=== PATIENT | female | born 1965 ===

== ENCOUNTER 2018-11-19 10:42 | Emergency (ER) | payer MEDICAID ==
[2018-11-19 10:48] VITALS: RESP 18; O2SAT 97
[2018-11-19 12:50] VITALS: BP 114/71; PULSE 55; TEMP 98.5
--- NOTE | 2018-11-19 13:04 | C.PDOC ---
History Of Present Illness 53 year old female presents to the ED for evaluation of cough which began one week ago. She also reports associated fever, sore throat, and diarrhea. Patient reports a history of asthma. She has been using her inhaler without relief and is requesting albuterol for her pump. She denies abdominal pain, shortness of breath, and vomiting. Time Seen by Provider: 11/19/18 10:54 Chief Complaint (Nursing): Flu-like Symptoms History Per: Patient History/Exam Limitations: no limitations Onset/Duration Of Symptoms: Other (one week ) Current Symptoms Are (Timing): Still Present Additional History Per: Patient Past Medical History Reviewed: Historical Data, Nursing Documentation, Vital Signs Vital Signs: Last Vital Signs Temp 98.5 F 11/19/18 12:50 Pulse 55 L 11/19/18 12:50 Resp 18 11/19/18 12:50 BP 114/71 11/19/18 12:50 Pulse Ox 97 11/19/18 12:50 - Medical History PMH: Anxiety, Asthma, Depression, Seizures Surgical History: No Surg Hx Family History: States: Unknown Family Hx - Social History Hx Alcohol Use: No Hx Substance Use: No - Immunization History Hx Tetanus Toxoid Vaccination: No Hx Influenza Vaccination: No Hx Pneumococcal Vaccination: No Review Of Systems Constitutional: Positive for: Fever ENT: Positive for: Throat Pain Respiratory: Positive for: Cough. Negative for: Shortness of Breath Gastrointestinal: Positive for: Nausea, Diarrhea. Negative for: Vomiting, Abdominal Pain Physical Exam - Physical Exam Appears: Non-toxic, No Acute Distress Skin: Normal Color, Warm, Dry Head: Atraumatic, Normacephalic Eye(s): bilateral: Normal Inspection Oral Mucosa: Moist Neck: Supple Chest: Symmetrical, No Deformity, No Tenderness Cardiovascular: Rhythm Regular, No Murmur Respiratory: No Rales, Rhonchi (scant), No Wheezing Gastrointestinal/Abdominal: Soft, No Tenderness, No Guarding, No Rebound Extremity: Normal ROM, Capillary Refill (less than 2 seconds ) Neurological/Psych: Oriented x3, Normal Speech, Normal Cognition ED Course And Treatment O2 Sat by Pulse Oximetry: 97 (on RA ) Pulse Ox Interpretation: Normal Medical Decision Making Medical Decision Making: Progress: CXR and prednisone PO given. Disposition - Disposition Referrals: [facility] [place] [Outside] [facility] [Outside] Disposition: HOME/ ROUTINE Disposition Time: 13:04 Condition: GOOD Additional Instructions: Follow up wit the medical doctor within 1-2 days. Return if worsened. 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 - Scribe Statement The provider has reviewed the documentation as recorded by the Scribe (Selina Weaver) All medical record entries made by the Scribe were at my direction and personally dictated by me. I have reviewed the chart and agree that the record accurately reflects my personal performance of the history, physical exam, medical decision making, and the department course for this patient. I have also personally directed, reviewed, and agree with the discharge instructions and disposition.
--- NOTE | 2018-11-19 13:40 | RAD ---
HISTORY: cough, fever COMPARISON: Chest x-ray performed 10/18/19 TECHNIQUE: Chest PA and lateral FINDINGS: Examination limited by habitus. LUNGS: Mild bibasilar atelectasis. No focal consolidation. Please note that chest x-ray has limited sensitivity for the detection of pulmonary masses. PLEURA: No significant pleural effusion identified. No definite pneumothorax . CARDIOVASCULAR: Heart size appears within normal limits. No significant atherosclerotic calcification appreciated. OSSEOUS STRUCTURES: Degenerative changes. VISUALIZED UPPER ABDOMEN: Elevation of the right hemidiaphragm. OTHER FINDINGS: None. IMPRESSION: Elevation of the right hemidiaphragm. Mild bibasilar atelectasis.
== END 2018-11-19 13:27 | disposition home or self-care (01) ==
LOC: C.ER 10:42
DX: J40 Bronchitis, not specified as acute or chronic (principal)